=== PATIENT | male | born 2000 | race Caucasian/White ===

== ENCOUNTER 2021-01-27 21:49 | Emergency (ER) | payer OTHER, SELFPAY ==
[2021-01-27] MEDS ORDERED: Cyclobenzaprine 10 MG TAB ONE (22:37)
[2021-01-27] MEDS ORDERED: Acetaminophen/Codeine 30-300mg Tablet ONE (22:37)
[2021-01-27] MEDS ORDERED: Ibuprofen 200 MG TAB ONE (22:37)
== END 2021-01-27 22:45 | disposition home or self-care (01) ==
LOC: ERS 21:49
DX: S09.90XA Unspecified injury of head, initial encounter (principal); S46.912A Strain of unspecified muscle, fascia and tendon at shoulder and upper arm level, left arm, initial encounter; S29.012A Strain of muscle and tendon of back wall of thorax, initial encounter; F17.210 Nicotine dependence, cigarettes, uncomplicated; V89.2XXA Person injured in unspecified motor-vehicle accident, traffic, initial encounter
CPT/HCPCS: 99283